=== PATIENT | male | born 1965 | race Two or more races ===

== ENCOUNTER 2018-07-20 14:04 | Day surgery (SDC) | payer OTHER ==
[2018-07-20] MEDS ORDERED: FENTAnyl 50 MCG/ML VIAL (16:15)
[2018-07-20] MEDS ORDERED: MIDAZOLAM 1 MG/ML 2 ML INJ ×2 (16:16)
== END 2018-07-20 16:26 | disposition home or self-care (01) ==
LOC: GIL 14:04
DX: D50.0 Iron deficiency anemia secondary to blood loss (chronic) (principal); K20.9 Esophagitis, unspecified
CPT/HCPCS: 43239; 88305; 88312